=== PATIENT | female | born 1945 | race Caucasian/White ===

== ENCOUNTER 2016-08-04 19:00 | Emergency (ER) | payer MEDICARE, OTHER ==
[2016-08-04 14:30] LABS: BASOPHILS 0.1 %; BASOPHILS ABSOLUTE 0.01 10/3/uL (0.0-0.16); EOSINOPHILS 1.7 %; EOSINOPHILS ABSOLUTE 0.13 10/3/uL (0.0-0.53); IMMATURE GRANULOCYTES 0.3 %; IMMATURE GRANULOCYTES ABSOLUTE 0.02 10/3/uL (0.0-0.11); LYMPHOCYTES 34.3 %; LYMPHOCYTES ABSOLUTE 2.64 10/3/uL (0.67-4.30); MEAN CORPUS HGB CONC 32.2 g/dL (32.0-36.0); MEAN CORPUSCULAR HEMOGLOB 30.5 pg (26.0-34.0); MEAN CORPUSCULAR VOLUME 94.9 fL (80-100); MEAN PLATELET VOLUME 10.2 fL (9.2-13.0); MONOCYTES 5.8 %; MONOCYTES ABSOLUTE 0.45 10/3/uL (0.21-1.20); NEUTROPHILS 57.8 %; NEUTROPHILS ABSOLUTE 4.45 10/3/uL (2.02-8.40); RBC DISTRIBUTION WIDTH 14.9 % (12.0-16.0); WHITE BLOOD CELLS 7.7 10/3/uL (4.5-10.5)
[2016-08-04 14:31] LABS: HEMATOCRIT 35.1 % (36.0-48.0); HEMOGLOBIN 11.3 g/dL (12.0-16.0)
[2016-08-04 14:32] LABS: MANUAL DIFF NO %; PLATELET COUNT 261 10/3/uL (150-400)
[2016-08-04 14:45] LABS: CALCIUM, SERUM 8.9 MG/DL (8.5-10.4); CHLORIDE, SERUM 105 MMOL/L (96-112); CREATININE 1.63 MG/DL (0.55-1.02); GFR AFRICAN AMERICAN 37 ML/MIN (>=60); GFR NON AFRICAN AMERICAN 32 ML/MIN (>=60); GLUCOSE, SERUM 216 MG/DL (60-99); POTASSIUM, SERUM 4.5 MMOL/L (3.5-5.3); SGOT(AST) 14 U/L (5-40); SGPT(ALT) 23 U/L (5-65); SODIUM, SERUM 141 MMOL/L (135-148); TOTAL BILIRUBIN 1.1 MG/DL (0-1.2)
[2016-08-04 14:46] LABS: A/G RATIO 0.7 (0.7-1.9); ALBUMIN 3.1 G/DL (3.5-5.0); ALKALINE PHOSPHATASE 76 U/L (45-117); BUN (BLOOD UREA NITROGEN) 25 MG/DL (6-23); CO2 (CARBON DIOXIDE) 27 MMOL/L (24-34); GLOBULIN 4.3 G/DL (2.5-4.1); TOTAL PROTEIN 7.4 G/DL (6.0-8.5)
[2016-08-04 18:36] LABS: ASCORBIC ACID (UR NOT ORDER) 40 (NEG); BILIRUBIN, URINE NEGATIVE (NEG); ER URINALYSIS TAT 0 Hrs 15 Mins; KETONE, URINE TRACE MG/DL (NEG); LEUKOCYTE ESTERASE(NOT OR NEG (NEG); NITRITE (URINE) NEG (NEG); WBC (NOT ORDERED) (RFLEX) 2 (0-5)
[~2016-08-04 19:00] MED LIST: ASAB PO; D 5000 PO; ELIQUIS 5 MG TAB5 MG PO; FERROUS SULF325 M1 PO; FISH OIL1200 MG PO; KDUR20 PO; LIPITOR10 PO; NORV5 PO; PRESERVISION A1 EACH PO; PRILO PO; RAN500 PO; VITC500 PO; ZITH250 PO
== END 2016-08-04 22:34 | disposition home or self-care (01) ==
LOC: ER 19:00
PROVIDERS: Emergency Medicine
DX: S31.109D Unspecified open wound of abdominal wall, unspecified quadrant without penetration into peritoneal cavity, subsequent encounter (principal); Z93.1 Gastrostomy status; I11.0 Hypertensive heart disease with heart failure; E11.22 Type 2 diabetes mellitus with diabetic chronic kidney disease; N18.9 Chronic kidney disease, unspecified; K21.9 Gastro-esophageal reflux disease without esophagitis; I25.10 Atherosclerotic heart disease of native coronary artery without angina pectoris; Z88.8 Allergy status to other drugs, medicaments and biological substances; Z88.5 Allergy status to narcotic agent; Z79.82 Long term (current) use of aspirin; Z79.899 Other long term (current) drug therapy
CPT/HCPCS: 74176; 80053; 81001; 83690; 85025; 99284